=== PATIENT | female | born 1990 | race African-American/Black ===

== ENCOUNTER 2019-05-08 15:17 | Emergency (ER) | payer OTHER ==
[~2019-05-08] VITALS: Ht 152.4 cm; Wt 98.4 kg
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
[2019-05-08] MEDS ORDERED: HYDROCODONE/APAP 10MG-325MG TAB PO ONE (17:00)
[2019-05-08] MEDS ORDERED: HYDROCODONE/APAP 5MG-325MG TAB ONE (17:23)
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
== END 2019-05-08 19:19 | disposition home or self-care (01) ==
LOC: FSED 15:17
DX: S39.012A Strain of muscle, fascia and tendon of lower back, initial encounter (principal); S30.810A Abrasion of lower back and pelvis, initial encounter; S00.83XA Contusion of other part of head, initial encounter; M25.552 Pain in left hip; V43.62XA Car passenger injured in collision with other type car in traffic accident, initial encounter; Y92.488 Other paved roadways as the place of occurrence of the external cause
CPT/HCPCS: 70450; 71045; 72125; 81025; 99283